=== PATIENT | male | born 1995 | race Two or more races ===

== ENCOUNTER → 2018-02-06 | Outpatient (CLI) | payer OTHER ==
--- NOTE | 2018-02-06 10:32 | RAD ---
PA and lateral chest x-ray Indication: Positive PPD test Findings: There is moderate scarring and fibrotic change within the right lung apex with apical pleur al parenchymal scarring. There is a cavitary collection/lesion within the left lung apex likely in th e setting of tuberculosis infection, clinical correlation is needed as acute or chronic tuberculosis infection in this location is possible. Depending on clinical symptoms a contrast-enhanced chest CT c an also be performed for improved characterization. The mid and lower lung zones demonstrate no focal airspace opacity however there are suspected increased density nodular opacities within the right lo wer lobe likely representing sequela of prior granulomatous disease or prominent pulmonary vascularit y. No pleural effusion or pneumothorax. Heart size is normal. No acute osseous abnormality. Impression: See above. Reported By:
== END ==
LOC: RAD 09:53
PROVIDERS: ATTEND Internal Medicine
DX: Z03.89 Encounter for observation for other suspected diseases and conditions ruled out (principal); R91.8 Other nonspecific abnormal finding of lung field
CPT/HCPCS: 71046